=== PATIENT | male | born 1980 | race Hispanic/Latino ===

== ENCOUNTER 2018-08-08 07:49 | Emergency (ER) | payer OTHER ==
[2018-08-08 07:52] VITALS: BMI 25.0
[2018-08-08 07:53] VITALS: RESP 20; O2SAT 97
[2018-08-08] MEDS ORDERED: Sodium Chloride 0.9% 1,000 ML IV STA (08:17)
[2018-08-08 08:35] LABS: BASO % 0.3 % (0.0-2.0); EOS % 0.5 % (0.0-4.0); HEMOGLOBIN 15.2 g/dL (12.0-18.0); LYMPH # 0.8 K/uL (1.0-4.3); LYMPH % 9.6 % (20.0-40.0); MEAN CELL VOLUME 96.1 fl (80.0-94.0); MEAN CORPUSCULAR HEMOGLOBIN 32.4 pg (27.0-31.0); MEAN CORPUSCULAR HGB CONC 33.7 g/dL (33.0-37.0); MEAN PLATELET VOLUME 8.3 fl (7.2-11.7); MONO # 0.7 K/uL (0.0-0.8); MONO % 8.2 % (0.0-10.0); NEUT # 6.7 K/uL (1.8-7.0); NEUT % 81.4 % (50.0-75.0); PLATELET COUNT 280 K/uL (130-400); RBC 4.71 Mil/uL (4.40-5.90); RED CELL DISTRIBUTION WIDTH 12.6 % (11.5-14.5); WHITE BLOOD COUNT 8.3 K/uL (4.8-10.8)
--- NOTE | 2018-08-08 08:42 | ED PDOC ---
HPI: Abdomen Time Seen by Provider: 08/08/18 08:00 Chief Complaint (Nursing): Abdominal Pain Chief Complaint (Provider): Abdominal Pain History Per: Patient History/Exam Limitations: no limitations Onset/Duration Of Symptoms: Hrs (since this morning) Current Symptoms Are (Timing): Still Present Associated Symptoms: Vomiting. denies: Fever, Nausea, Diarrhea Additional Complaint(s): Joaquin Carmona is a 38 year old male with no past medical history, who presents to the emergency department complaining of having abdominal pain since this morning. Patient reports that he drank alcohol on Wednesday and was hungover yesterday and ended up vomiting twice. He states he drank plenty of fluids and denies any nausea, fever, and diarrhea. PMD: Sabina Watson Past Medical History Reviewed: Historical Data, Nursing Documentation, Vital Signs Vital Signs: Last Vital Signs Temp 99.3 F 08/08/18 07:53 Pulse 72 08/08/18 07:53 Resp 20 08/08/18 07:53 BP 135/77 08/08/18 07:53 Pulse Ox 97 08/08/18 07:53 - Medical History PMH: No Chronic Diseases - Surgical History Surgical History: No Surg Hx - Family History Family History: States: Unknown Family Hx - Home Medications Home Medications: Ambulatory Orders Medication Instructions Recorded Dicyclomine [Bentyl] 20 mg PO QID PRN #10 tab 08/08/18 Famotidine [Pepcid] 20 mg PO BID #20 tab 08/08/18 Ondansetron ODT [Zofran ODT] 4 mg PO Q8H PRN #20 odt 08/08/18 - Allergies Allergies/Adverse Reactions: Allergies Allergy/AdvReac Type Severity Reaction Status Date / Time No Known Allergies Allergy Verified 08/08/18 08:02 Review of Systems ROS Statement: Except As Marked, All Systems Reviewed And Found Negative Constitutional: Negative for: Fever Gastrointestinal: Positive for: Vomiting, Abdominal Pain. Negative for: Nausea, Diarrhea Physical Exam - Reviewed Nursing Documentation Reviewed: Yes Vital Signs Reviewed: Yes - Physical Exam Appears: Positive for: Non-toxic, In Acute Distress (mild painful distress) Head Exam: Positive for: ATRAUMATIC, NORMOCEPHALIC Skin: Positive for: Normal Color Cardiovascular/Chest: Positive for: Regular Rate, Rhythm. Negative for: Murmur Respiratory: Positive for: Normal Breath Sounds. Negative for: Respiratory Distress Gastrointestinal/Abdominal: Positive for: Tenderness (epigastric tenderness). Negative for: Guarding, Rebound Extremity: Positive for: Normal ROM Neurologic/Psych: Positive for: Alert, Oriented (x3) - Laboratory Results Result Diagrams: 08/08/18 08:29 08/08/18 08:29 - ECG O2 Sat by Pulse Oximetry: 97 (RA) Pulse Ox Interpretation: Normal Medical Decision Making Medical Decision Making: Time: 08:16 Impression: Epigastric pain and gastritis Plan: --CMP --Lipase --ED urine dipstick --CBC with differential --Sodium chloride 1,000 ml --Pepcid 20 mg IVP --Zofran 4 mg IV --Urinalysis --Abdomen US -- 5 ml PO 10:22 Abdominal US FINDINGS: LIVER: Measures 16.7 cm in length. Normal echogenicity of the liver parenchyma. No mass. No intrahepatic bile duct dilatation. GALLBLADDER: Mild mural thickening is appreciated 3.2 mm without pericholecystic fluid or prominent gallbladder distension. No cholelithiasis appreciable. No sonographic Brooks sign reported. Common bile duct is normal in caliber. COMMON BILE DUCT: Measures 4.8 mm. No stones. No dilatation. PANCREAS: The tail of the pancreas is obscured by overlying bowel gas with remainder unremarkable. RIGHT KIDNEY: Measures 11.9 cm in length. Normal echogenicity. No calculus, mass, or hydronephrosis. AORTA: No aneurysmal dilatation. IVC: Unremarkable. OTHER FINDINGS: None . IMPRESSION: Mildly thickened gallbladder wall without additional sonographic pattern to suggest acute cholecystitis. Clinically correlate further. Please see discussion above. Partial imaging of the pancreas with remainder this limited abdomen ultrasound o therwise unremarkable. Pt given copy of labs and ultrasound report to take to PMD. ------- Scribe Attestation: Documented by Black Duarte, acting as a scribe for Jerica Roland MD. Provider Scribe Attestation: All medical record entries made by the Scribe were at my direction and personally dictated by me. I have reviewed the chart and agree that the record accurately reflects my personal performance of the history, physical exam, medical decision making, and the department course for this patient. I have also personally directed, reviewed, and agree with the discharge instructions and disposition. Disposition - Clinical Impression Clinical Impression: Epigastric pain - Disposition Referrals: Sabina Watson MD [Primary Care Provider] - [facility] [Outside] Disposition: Routine/Home Disposition Time: 12:45 Condition: IMPROVED Prescriptions: Dicyclomine [Bentyl] 20 mg PO QID PRN #10 tab PRN Reason: Other Famotidine [Pepcid] 20 mg PO BID #20 tab Ondansetron ODT [Zofran ODT] 4 mg PO Q8H PRN #20 odt PRN Reason: Nausea/Vomiting Instructions: Gastritis, Ulcer and Gastritis Diet Forms: [facility] (Uzbek)
[2018-08-08 08:46] LABS: URINE CLARITY SLIGHTY-CLOUDY (Clear); URINE COLOR YELLOW (YELLOW); URINE GLUCOSE (UA) NEG (Normal)
[2018-08-08 08:47] LABS: URINE BACTERIA RARE (<OCC); URINE BILIRUBIN NEGATIVE (NEGATIVE); URINE BLOOD NEGATIVE (NEGATIVE); URINE HYALINE CAST 0-2 /hpf (0-2); URINE LEUKOCYTE ESTERASE NEG Leu/uL (Negative); URINE PROTEIN NEGATIVE (NEGATIVE); URINE UROBILINOGEN 0.2-1.0 mg/dL (0.2-1.0)
[2018-08-08] MEDS ORDERED: Alum-Mag Hydrox-Simethicone Susp (30 mL) PO STA (08:57)
[2018-08-08 09:02] LABS: ALB/GLOB RATIO 1.5 (1.0-2.1); ALBUMIN 4.6 g/dL (3.5-5.0); ALT/SGPT 41 U/L (21-72); AST/SGOT 35 U/L (17-59); BLOOD UREA NITROGEN 14 mg/dl (9-20); CALCIUM 9.9 mg/dL (8.4-10.2); GFR NON-AFRICAN AMERICAN > 60; LIPASE 55 U/L (23-300)
[2018-08-08] MEDS ORDERED: Alum-Mag Hydrox-Simethicone Susp (30 mL) ONE (09:08)
[2018-08-08] MEDS ORDERED: Atrop/Hyos/Scop/PhenoB Elixir PO ONE (09:30)
[2018-08-08 10:09] LABS: EOSINOPHIL 1 % (0-7); LYMPHOCYTE 11 % (20-50); MONOCYTE 10 % (0-10); NEUTROPHIL 77 % (42-75); PLATELET ESTIMATE NORMAL (NORMAL); REACTIVE LYMPHOCYTES 1 % (0-0); TOTAL CELLS COUNTED 100
--- NOTE | 2018-08-08 10:25 | US ---
Date of service: 08/08/2018 HISTORY: Epigastric pain COMPARISON: None. TECHNIQUE: Sonographic evaluation of the right upper quadrant of the abdomen. FINDINGS: LIVER: Measures 16.7 cm in length. Normal echogenicity of the liver parenchyma. No mass. No intrahepatic bile duct dilatation. GALLBLADDER: Mild mural thickening is appreciated 3.2 mm without pericholecystic fluid or prominent gallbladder distension. No cholelithiasis appreciable. No sonographic Brooks sign reported. Common bile duct is normal in caliber. COMMON BILE DUCT: Measures 4.8 mm. No stones. No dilatation. PANCREAS: The tail of the pancreas is obscured by overlying bowel gas with remainder unremarkable. RIGHT KIDNEY: Measures 11.9 cm in length. Normal echogenicity. No calculus, mass, or hydronephrosis. AORTA: No aneurysmal dilatation. IVC: Unremarkable. OTHER FINDINGS: None . IMPRESSION: Mildly thickened gallbladder wall without additional sonographic pattern to suggest acute cholecystitis. Clinically correlate further. Please see discussion above. Partial imaging of the pancreas with remainder this limited abdomen ultrasound otherwise unremarkable.
[2018-08-08] MEDS ORDERED: Belladonna-Phenobarbital PO STA (11:28)
[2018-08-08 11:37] VITALS: BP 145/77; PULSE 66; TEMP 98
== END 2018-08-08 12:58 | disposition home or self-care (01) ==
LOC: SUPCPDRO 07:49 → H.ER 07:49
DX: K29.70 Gastritis, unspecified, without bleeding (principal); R10.13 Epigastric pain
CPT/HCPCS: 76705; 80053; 81003; 83690; 85025; 96374; 99284; J2405; J7030